=== PATIENT | male | born 1980 | race Two or more races ===

== ENCOUNTER 2023-09-24 18:23 | Emergency (ER) | payer BC ==
[~2023-09-24] VITALS: Ht 170.2 cm; Wt 68.0 kg
[2023-09-24] MEDS ORDERED: IBUPROFEN 400 MG TABLET ONE (19:33)
[2023-09-24] MEDS: IBUPROFEN 400 MG TABLET PO ONE (19:34)
[2023-09-24 21:47] VITALS: BP 130/89; TEMP 98.1; O2SAT 9
== END 2023-09-24 21:48 | disposition home or self-care (01) ==
LOC: ER 18:37
DX: S92.354A Nondisplaced fracture of fifth metatarsal bone, right foot, initial encounter for closed fracture (principal); W22.8XXA Striking against or struck by other objects, initial encounter; Y93.89 Activity, other specified; Y92.89 Other specified places as the place of occurrence of the external cause; Y99.8 Other external cause status
CPT/HCPCS: 73630-TC